=== PATIENT | male | born 1995 | race Caucasian/White ===

== ENCOUNTER 2020-06-21 10:53 | Emergency (ER) | payer OTHER, SELFPAY ==
[~2020-06-21] VITALS: Ht 154.9 cm; Wt 53.1 kg
[2020-06-21 10:56] VITALS: BP 128/91; Ht 154.9 cm; Wt 53.1 kg
== END 2020-06-21 11:52 | disposition home or self-care (01) ==
LOC: ED 10:53
DX: R50.9 Fever, unspecified (principal); R51 Headache; M79.10 Myalgia, unspecified site; R06.02 Shortness of breath; R19.7 Diarrhea, unspecified; Z20.828 Contact with and (suspected) exposure to other viral communicable diseases
CPT/HCPCS: U0003-CS